=== PATIENT | male | born 1965 | race Caucasian/White ===

== ENCOUNTER 2017-08-05 17:39 | Emergency (ER) | END 2017-08-05 21:45 | disposition home or self-care (01) ==

== ENCOUNTER 2017-09-21 08:39 | Emergency (ER) | END 2017-09-21 10:37 | disposition home or self-care (01) ==

== ENCOUNTER 2018-01-15 07:58 | Day surgery (SDC) | END 2018-01-15 11:28 | disposition home or self-care (01) ==

== ENCOUNTER 2018-12-10 17:31 | Emergency (ER) | payer OTHER ==
[~2018-12-10] VITALS: Ht 167.6 cm; Wt 85.0 kg
[~2018-12-10 17:31] MED LIST: ALBU18HF INH; BECL10.6 IH
[2018-12-10 17:39] VITALS: Ht 167.6 cm; Wt 85.0 kg
[2018-12-10] MEDS ORDERED: TETRACAINE 0.5% 4 ML OPH RIGHT EYE ONE (19:00)
[2018-12-10] MEDS ORDERED: FLUORESCEIN STRIP RIGHT EYE ONE (20:30)
[2018-12-10] MEDS ORDERED: ERYTHROMYCIN 1 GM OPH OINT RIGHT EYE ONE (21:30)
[2018-12-10] MEDS ORDERED: ERYT1OIN6 RIGHT EYE (21:41)
[2018-12-10 21:53] VITALS: BP 149/89; PULSE 62; RESP 18
--- NOTE | 2018-12-10 22:21 | ERD ---
ER Documentation Chief Complaint Chief Complaint possible foreign body in right eye yesterday HPI History of Present Illness: 53-year-old male who denies a past medical history coming in today due to foreign body sensation to right eye. Patient reports working outside yesterday in which he believes that he may have retained a foreign body. At home pharmacological/nonpharmacological treatment for symptoms: Denies Denies social concerns; Denies recent foreign travel ROS All systems reviewed and are negative except as per history of present illness. Medications Home Meds Active Scripts Erythromycin Base (Erythromycin) 1 Gm Oint...g., 1 APPLIC RIGHT EYE QID for corneal abrasion/prevent infec for 7 Days Prov:KRISTOPHER HUTTON Lauri ENGINEERING ADMINISTRATOR 12/10/18 Reported Medications Beclomethasone Dipropionate (Qvar Redihaler (40 MCG)) 10.6 Gm Hfa.aeroba, 10.6 GM IH, INH 01/15/18 Albuterol Sulfate* (Ventolin HFA*) 18 Gm Hfa.aer.ad, INH PRN 10/16/11 Allergies Allergies: Coded Allergies: No Known Allergy (Unverified , 01/15/18) PMhx/Soc History of Surgery: Yes (appy) Anesthesia Reaction: No Hx Neurological Disorder: No Hx Respiratory Disorders: Yes (bronchial asthma) Hx Cardiac Disorders: No Hx Psychiatric Problems: No Hx Miscellaneous Medical Probl: No Hx Alcohol Use: No Hx Substance Use: No Hx Tobacco Use: No Smoking Status: Never smoker FmHx Family History: No diabetes, No coronary disease Physical Exam Vitals Vital Signs Date Temp Pulse Resp B/P (MAP) Pulse Ox O2 O2 Flow FiO2 Time Delivery Rate 12/10/18 97.8 62 18 149/89 97 21:53 (109) 12/10/18 98.2 71 18 121/71 97 17:39 (88) Physical Exam Const: No acute distress Head: Atraumatic Eyes: Normal Conjunctiva, no obvious foreign body with eyelid inversion, no injection ENT: Normal External Ears, Nose and Mouth. Neck: Full range of motion. No meningismus. Resp: Clear to auscultation bilaterally Cardio: Regular rate and rhythm, no murmurs Abd: Soft, non tender, non distended. Normal bowel sounds Skin: No petechiae or rashes Back: No midline or flank tenderness Ext: No cyanosis, or edema Neur: Awake and alert, no pain with EOM Psych: Normal Mood and Affect Results 24 hrs Current Medications Medications Dose Sig/Liane Start Time Status Last (Trade) Ordered Route PRN Stop Time Admin Dose Reason Admin Tetracaine 1 drop ONCE ONCE 12/10/18 DC HCl RIGHT EYE 19:00 (Tetracaine 12/10/18 19:01 0.5% Steri-Unit Dionna) Fluorescein 1 strip ONCE ONCE 12/10/18 DC Sodium RIGHT EYE 20:30 (Cadbo-F-Zjom 12/10/18 20:31 p) 1 applic ONCE ONCE 12/10/18 DC 12/10/18 Erythromycin RIGHT EYE 21:30 21:24 12/10/18 21:31 (Erythromycin Oph Oint) Procedures/MDM ED course includes a thorough examination and history. ED course includes eyewash Medications: Tetracaine Imaging: Labs: Eye Exam w/ Elias Lamp: Visual Acuity: 20/40 to affected right eye, 20/25 to left eye Visual Avina: Intact in all four quadrants bilaterally Lac ducts/glands: No swelling Lids w/ evertion: Normal, no foreign body Conj/Langley: Clear, negative Franklin's; positive reuptake of flUROSCEIN to ri ght cornea at approximately 3 TO 7 o'clock Low suspicion for life-threatening medical emergency. Low suspicion for ophthalmologic emergency requires immediate Otherwise healthy patient presenting with constellation of symptoms likely representing corneal abrasion as characterized by history, physical exam findings. Case discussed with ED Dr. Truong Patient reassessment 2142: Patient hemodynamically stable. No respiratory distress, otherwise relatively well appearing and nontoxic. Disposition given. Patient educated on diagnoses, prescriptions, follow-up care, return precautions. Strict return precautions given for worsening condition; questions answered discharge. Patient verbalizes understanding of results, discharge instructions, plan of care, follow-up, return precautions Disposition for discharge with followup in 2 days with PCP/clinic. Departure Diagnosis: Primary Impression: Corneal abrasion, right Condition: Stable Patient Instructions: Corneal Abrasion [facility] Usted se nolasco hecho un examen mdico de control que le indica que no est en parisa condicin que requiera tratamiento urgente en el Departamento de Emergencia. Un estudio ms profundo y el tratamiento de wilson condicin pueden esperar sin ningn riesgo hasta que usted sea atendida/o en el consultorio de wilson mdico o parisa clnica. Es responsabilidad suya arreglar parisa oli para el seguimiento del dale. MANEJO DE CONDICIONES NO URGENTES EN EL FUTURO 1) Si usted tiene un mdico de atencin primaria: Usted debera llamar a wilson mdico de atencin primaria antes de venir al departamento de emergencia. Despus de las horas de consultorio, wilson doctor o wilson asociado/a est disponible por telfono. El mdico o enfermero de nick en el servicio telefnico puede asesorarle por dominik medio para atender el problema, o dale contrario se puede programar parisa oli. 2) Si usted no tiene un mdico de atencin primaria: Llame al mdico o clnica de referencia que aparece abajo manuel las horas de consultorio para hacer parisa oli para que le vean. CLINICAS: [facility] [phone] [facility] [phone] [address] [facility]. [facility] [phone] [address] [facility]. [facility] [phone] [facility]. [place] [phone] [facility]. [phone] [address] [facility]. [facility] () Usted se nolasco hecho un examen mdico de control que le indica que no est en parisa condicin que requiera tratamiento urgente en el Departamento de Emergencia. Un estudio ms profundo y el tratamiento de wilson condicin pueden esperar sin ningn riesgo hasta que usted sea atendida/o en el consultorio de wilson mdico o parisa clnica. Es responsabilidad suya arreglar parisa oli para el seguimiento del dale. MANEJO DE CONDICIONES NO URGENTES EN EL FUTURO 1) Si usted tiene un mdico de atencin primaria: Usted debera llamar a wilson mdico de atencin primaria antes de venir al departamento de emergencia. Despus de las horas de consultorio, wilson doctor o wilson asociado/a est disponible por telfono. El mdico o enfermero de nick en el servicio telefnico puede asesorarle por dominik medio para atender el problema, o dale contrario se puede programar parisa oli. 2) Si usted no tiene un mdico de atencin primaria: Llame al mdico o condado institucions de referencia que aparece abajo manuel las horas de consultorio para hacer parisa oli para que le vean. SI USTED NO PUEDE PAGAR PARA ASHLEY UN MEDICO puede ir a: [facility] [address] [place] [address] [facility] [address] [place] [address] [facility] [address] [place] [address] [facility] [address] [place] [address] [facility] Hours: Mon - Fri 9:00 AM - 5:00 PM Additional Instructions: Muchas sandra por permitirnos participar en wilson cuidado. Wilson giselle y seguridad es nuestra principal prioridad en [facility]. Es importante leer todas las instrucciones de day y la educacin que se proporcionan en wilson paquete de day. Llame a wilson mdico de atencin primaria y wilson mdico de la vista MAANA para parisa oli manuel los prximos 1 a 2 everett y lleve toda la informacin y los medicamentos recetados. Llene las recetas y siga exactamente las instrucciones de la etiqueta. -La eritromicina es un antibitico para los ojos; tome addison medicamento todos los everett michael se indica en wilson receta. Debe completar todo el curso de tratamiento que figura en wilson receta; esto es muy importante porque se necesitan varios everett para eliminar las bacterias que pueden causar la infeccin. Si los sntomas empeoran y wilson proveedor no est disponible, regrese inmediatamente al Departamento de Emergencias. --- Thank you very much for allowing us to participate in your care. Your health and safety is our top priority at [facility]. It is important to read all discharge instructions and education provided in your discharge packet. Call your primary care doctor and your eye doctor TOMORROW for an appointment during the next 1-2 days and bring all the information and medications prescribed. Have prescriptions filled and follow precisely the directions on the label. -Erythromycin is an antibiotic for eyes; take this medication every day as listed on your prescription. You must complete the entire course of treatment that is listed on your prescription this is very important because it takes a certain number of days to kill the bacteria that can cause the infection. If the symptoms get worse and your provider is unavailable, return to the Emergency Department immediately. KRISTOPHER HUTTON NP Dec 10, 2018 22:21
== END 2018-12-10 21:57 | disposition home or self-care (01) ==
LOC: FTE 17:31
DX: S05.01XA Injury of conjunctiva and corneal abrasion without foreign body, right eye, initial encounter (principal); X58.XXXA Exposure to other specified factors, initial encounter; Y28.9XXA Contact with unspecified sharp object, undetermined intent, initial encounter
CPT/HCPCS: 99283